=== PATIENT | male | born 1965 | race Caucasian/White ===

== ENCOUNTER 2017-03-12 11:30 | Inpatient (IN) | payer OTHER ==
[2017-03-12] MEDS ORDERED: Clindamycin Phosphate 900 MG in Sodium Chloride 0.9% 100 ML IV ONE (12:33)
[2017-03-12] MEDS: Sodium Chloride 0.9% 10 ML Syringe FLUSH PRN ×2 (12:40→15:52)
--- NOTE | 2017-03-12 12:40 | EDM.PDOC ---
ED HPI GENERAL MEDICAL PROBLEM - General Chief Complaint: Upper Extremity Injury/Pain Stated Complaint: REDNESS AND SWELLING TO LT HAND Time Seen by Provider: 03/12/17 12:20 Source of Information: Reports: Patient History Limitations: Reports: No Limitations - History of Present Illness INITIAL COMMENTS - FREE TEXT/NARRATIVE: Patient is a 51-year-old male who presents to the ED complaining of infection to the left hand and fourth finger. Patient states approximately one week ago developed a blisterlike infection to the dorsal aspect of the proximal phalanx of the left fourth finger. He popped it with some drainage with a needle that was saturated with alcohol. Over the course of the week the redness and swelling has spread involving his hand at this point. He has increased pain with palpation and also with trying to grasp things. States he had episode of feeling feverish 2 days ago that since resolved. No redness streaking up his arm. Swelling is localized to the hand. No history of MRSA. Started taking penicillin that was left over from previous infection yesterday with no improvements to current condition. He has no past medical history and currently taking no medications other than the penicillin. Treatments POST EXCHANGE MANAGER: Reports: Other (see below) Other Treatments POST EXCHANGE MANAGER: Ibuprofen at 1030 Left Hand Pain Score (Numeric/FACES): 8 - Related Data Allergies Allergy/AdvReac Type Severity Reaction Status Date / Time Dairy Products Allergy Itching Verified 03/12/17 11:46 Home Meds: Home Meds Sulfamethoxazole/Trimethoprim [Bactrim Ds Tablet] 1 each PO BID #20 tablet 03/12 [Rx] Past Medical History Gastrointestinal History: Reports: Other (See Below) Other Gastrointestinal History: ulcerative colitis Dermatologic History: Reports: Other (See Below) Other Dermatologic History: staph infections Social & Family History - Tobacco Use Smoking Status *Q: Former Smoker Used Tobacco, but Quit: No - Recreational Drug Use Recreational Drug Use: No Review of Systems - Review of Systems Review Of Systems: ROS reveals no pertinent complaints other than HPI. ED EXAM, GENERAL - Physical Exam Exam: See Below Exam Limited By: No Limitations General Appearance: Alert, WD/WN, No Apparent Distress Ears: Hearing Grossly Normal Nose: Normal Inspection Throat/Mouth: Normal Voice, No Airway Compromise Neck: Normal Inspection, Supple Respiratory/Chest: No Respiratory Distress, Lungs Clear, Normal Breath Sounds, No Accessory Muscle Use, Chest Non-Tender Cardiovascular: Normal Peripheral Pulses, Regular Rate, Rhythm Peripheral Pulses: 2+: Radial (L) Extremities: Other (Abscess to the dorsal aspect of the proximal phalanx left fourth finger and involving the dorsum of the hand. Drainage present. Appears to be clear/stroke other. Increased redness, swelling, pain with palpation. Decreased range of motion noted. This is secondary to swelling. No sensory motor deficits distally. With examination of the left fourth finger patient has no pain with pressing against resistance while flexing and extending. No redness streaking up his arm.) Neurological: Alert, Oriented, Normal Cognition, No Motor/Sensory Deficits Psychiatric: Normal Affect, Normal Mood Skin Exam: Warm, Dry Course - Vital Signs Last Recorded V/S: Last Vital Signs Temp 99.9 F 03/12/17 20:26 Pulse 98 03/12/17 18:25 Resp 17 03/12/17 20:26 BP 153/98 H 03/12/17 20:26 Pulse Ox 97 03/12/17 20:26 - Orders/Labs/Meds Orders: Active Orders 24 hr Category Date Time Status Peripheral IV Care [RC] . DIRECTED Care 03/12/17 12:35 Active CULTURE ANAEROBIC + SMEAR [] Stat Lab 03/12/17 11:40 Results CULTURE ANAEROBIC + SMEAR [] Stat Lab 03/12/17 19:03 Received CULTURE ANAEROBIC + SMEAR [] Stat Lab 03/12/17 19:04 Received Medication Orders Aspirin (Ecotrin) 325 mg PO DAILY EVIE Bisacodyl (Dulcolax) 5 mg PO DAILY PRN PRN Reason: Constipation Diphenhydramine HCl (Benadryl) 25 mg IVPUSH Q4H PRN PRN Reason: Itching Docusate Sodium (Colace) 100 mg PO BID PRN PRN Reason: Constipation Famotidine (Pepcid) 20 mg PO Q12H EVIE Cefazolin Sodium/Dextrose 2 gm (/ Premix) 50 mls @ 100 mls/hr IV Q8H EVIE Vancomycin HCl 1 gm/Vancomycin HCl 500 mg/ Sodium Chloride 500 mls @ 333 mls/ hr IV Q8H EVIE Magnesium Hydroxide (Milk Of Magnesia) 30 ml PO BID PRN PRN Reason: Constipation Morphine Sulfate (Morphine) 2 mg IVPUSH Q2H PRN PRN Reason: Pain (moderate 4-6) Naloxone HCl (Narcan) 0.1 mg IVPUSH Q5M PRN PRN Reason: oversedation Stop: 03/13/17 19:15 Ondansetron HCl (Zofran) 4 mg IVPUSH Q6H PRN PRN Reason: Nausea/Vomiting Oxycodone/Acetaminophen (Percocet 325-5 Mg) 1 - 2 tab PO Q6H PRN PRN Reason: Pain Last Admin: 03/12/17 21:29 Dose: 2 tab Senna (Senna) 8.6 mg PO BID PRN PRN Reason: Constipation Sodium Chloride (Saline Flush) 10 ml FLUSH ASDIRECTED PRN PRN Reason: Keep Vein Open Vancomycin HCl (Pharmacy To Dose - Vancomycin) 1 dose .XX ASDIRECTED EVIE Labs: Laboratory Tests 03/12/17 03/12/17 Range/Units 12:44 12:44 WBC 17.61 H (4.23-9.07) K/mm3 RBC 4.47 L (4.63-6.08) M/mm3 Hgb 13.9 (13.7-17.5) gm/L Hct 40.3 (40.1-51.0) % MCV 90.2 (79.0-92.2) fl MCH 31.1 (25.7-32.2) pg MCHC 34.5 (32.2-35.5) g/dl RDW Std Deviation 42.7 (35.1-43.9) fL Plt Count 230 (163-337) K/mm3 MPV 9.1 L (9.4-12.3) fl Neut % (Auto) 79.1 H (34.0-67.9) % Lymph % (Auto) 11.0 L (21.8-53.1) % [place] % (Auto) 9.1 (5.3-12.2) % Eos % (Auto) 0.5 L (0.8-7.0) Baso % (Auto) 0.1 (0.1-1.2) % Neut # (Auto) 13.93 H (1.78-5.38) K/mm3 Lymph # (Auto) 1.94 (1.32-3.57) K/mm3 [place] # (Auto) 1.61 H (0.30-0.82) K/mm3 Eos # (Auto) 0.08 (0.04-0.54) K/mm3 Baso # (Auto) 0.02 (0.01-0.08) K/mm3 Manual Slide Review Not Reportable Sodium 137 (136-145) mEq/L Potassium 3.8 (3.5-5.1) mEq/L Chloride 102 (98-107) mEq/L Carbon Dioxide 26 (21-32) mEq/L Anion Gap 12.8 (5-15) BUN 12 (7-18) mg/dL Creatinine 1.2 (0.7-1.3) mg/dL Est Cr Clr Drug Dosing 76.69 mL/min Estimated GFR (MDRD) > 60 (>60) mL/min BUN/Creatinine Ratio 10.0 L (14-18) Glucose 102 (74-106) mg/dL Calcium 9.2 (8.5-10.1) mg/dL Total Bilirubin 1.4 H (0.2-1.0) mg/dL AST 20 (15-37) U/L ALT 27 (16-63) U/L Alkaline Phosphatase 86 (46-116) U/L C-Reactive Protein 20.2 H* (<1.0) mg/dL Total Protein 7.8 (6.4-8.2) g/dl Albumin 3.6 (3.4-5.0) g/dl Globulin 4.2 gm/dL Albumin/Globulin Ratio 0.9 L (1-2) Meds: Medications Generic Name Dose Route Start Last Admin Trade Name Freq PRN Reason Stop Dose Admin Aspirin 325 mg 03/13/17 09:00 Ecotrin PO DAILY EVIE Bisacodyl 5 mg 03/12/17 19:11 Dulcolax PO DAILY PRN Constipation Diphenhydramine HCl 25 mg 03/12/17 19:11 Benadryl IVPUSH Q4H PRN Itching Docusate Sodium 100 mg 03/12/17 19:11 Colace PO BID PRN Constipation Famotidine 20 mg 03/12/17 19:15 Pepcid PO Q12H EVIE Cefazolin Sodium/Dextrose 2 gm 50 mls @ 100 mls/hr 03/12/17 22:00 / Premix IV Q8H EVIE Vancomycin HCl 1 gm/ 500 mls @ 333 mls/hr 03/13/17 05:00 Vancomycin HCl 500 mg/ Sodium IV Chloride Q8H EVIE Magnesium Hydroxide 30 ml 03/12/17 19:11 Milk Of Magnesia PO BID PRN Constipation Morphine Sulfate 2 mg 03/12/17 19:11 Morphine IVPUSH Q2H PRN Pain (moderate 4-6) Naloxone HCl 0.1 mg 03/12/17 19:11 Narcan IVPUSH 03/13/17 19:15 Q5M PRN oversedation Ondansetron HCl 4 mg 03/12/17 19:11 Zofran IVPUSH Q6H PRN Nausea/Vomiting Oxycodone/Acetaminophen 1 - 2 tab 03/12/17 19:11 03/12/17 21:29 Percocet 325-5 Mg PO 2 tab Q6H PRN Administration Pain Senna 8.6 mg 03/12/17 19:11 Senna PO BID PRN Constipation Sodium Chloride 10 ml 03/12/17 19:11 Saline Flush FLUSH ASDIRECTED PRN Keep Vein Open Vancomycin HCl 1 dose 03/12/17 19:15 Pharmacy To Dose - Vancomycin .XX ASDIRECTED EVIE Discontinued Medications Generic Name Dose Route Start Last Admin Trade Name Freq PRN Reason Stop Dose Admin Bupivacaine HCl Confirm 03/12/17 18:07 Marcaine 0.25% Administered 03/12/17 18:08 Dose 30 ml .ROUTE .STK-MED ONE Fentanyl Confirm 03/12/17 18:37 Sublimaze Administered 03/12/17 18:38 Dose 250 mcg .ROUTE .STK-MED ONE Gadobenate Dimeglumine 20 ml 03/12/17 14:52 03/12/17 15:51 Multihance IVPUSH 03/12/17 14:53 20 ml ONETIME ONE Administration Clindamycin Phosphate 900 mg/ 106 mls @ 100 mls/hr 03/12/17 12:33 03/12/17 12 :52 Sodium Chloride IV 03/12/17 13:36 100 mls/hr ONETIME ONE Administration Vancomycin HCl 1 gm/ Sodium 250 mls @ 250 mls/hr 03/12/17 17:41 03/12/17 17: 51 Chloride IV 03/12/17 18:40 Not Given ONETIME ONE Sodium Chloride 1,000 mls @ 999 mls/hr 03/12/17 18:12 03/12/17 18:23 Normal Saline IV 03/12/17 19:12 999 mls/hr ONETIME ONE Administration Lidocaine HCl Confirm 03/12/17 18:37 Xylocaine-Mpf 1% Administered 03/12/17 18:38 Dose 4 mls @ as directed .ROUTE .STK-MED ONE Cefazolin Sodium/Dextrose 2 gm 50 mls @ 100 mls/hr 03/12/17 19:00 / Premix IV Q8H EVIE Lactated Ringer's Confirm 03/12/17 19:32 Ringers, Lactated Administered 03/12/17 19:33 Dose 1,000 mls @ as directed .ROUTE .STK-MED ONE Vancomycin HCl 1 gm/ 500 mls @ 333 mls/hr 03/12/17 21:00 Vancomycin HCl 500 mg/ Sodium IV Chloride Q8H EVIE Ketorolac Tromethamine 30 mg 03/12/17 17:41 03/12/17 17:49 Toradol IVPUSH 03/12/17 17:42 30 mg ONETIME ONE Administration Midazolam HCl Confirm 03/12/17 18:37 Versed 1 Mg/Ml Administered 03/12/17 18:38 Dose 2 mg .ROUTE .STK-MED ONE Ondansetron HCl Confirm 03/12/17 18:36 Zofran Administered 03/12/17 18:37 Dose 4 mg .ROUTE .STK-MED ONE Propofol Confirm 03/12/17 18:36 Diprivan 20 Ml Administered 03/12/17 18:37 Dose 200 mg .ROUTE .STK-MED ONE Sodium Chloride 10 ml 03/12/17 12:33 03/12/17 15:52 Saline Flush FLUSH 10 ml ASDIRECTED PRN Administration Keep Vein Open Sodium Chloride 10 ml 03/12/17 14:52 03/12/17 15:53 Saline Flush FLUSH 10 ml ONETIME PRN Administration Keep Vein Open Trimethoprim/Sulfamethoxazole 2 tab 03/12/17 16:48 03/12/17 17:51 Septra Ds PO 03/12/17 16:49 Not Given ONETIME ONE Vancomycin HCl Confirm 03/12/17 19:03 03/12/17 19:16 Vancomycin Administered 03/12/17 19:04 1 gm Dose Administration 1 gm .ROUTE .STK-MED ONE - Re-Assessments/Exams Free Text/Narrative Re-Assessment/Exam: X-ray of the left hand did not reveal any acute bony abnormalities or foreign objects present. Soft tissue swelling present. No findings suspicious for osteomyelitis. 03/12/17 14:21 Labs reviewed: White blood cell count 17.61, neutrophil percentage 79.1, neutrophil #13.93, and chemistry panel is essentially normal. CRP is 20.2. IV antibiotic has been completed. [address] Ly. Suggested Stat Hand MRI with and without contrast to evaluate for deep abscess. If no abscess call back and discuss further treatment. If abscess present requires surgery and hospitalization. 03/12/17 16:42 MRI of the left hand impression: Diffuse soft tissue edema within the dorsum of the hand as well extending into the fourth digit. Diffuse enhancement is seen compatible with inflammatory change. Findings are compatible with severe cellulitis. Several nonenhancing areas are seen posteriorly at the level of the distal metacarpals and extending into the base of the fourth finger which are felt compatible with small multiloculated abscess collections. Largest abscess measures about 1.9 cm[address] Ly suggests starting the patient on Bactrim DS. This has been ordered. Requests patient be NPO after midnight. Go to his clinic at 0800 hrs tomorrow to be reevaluated. Surgery debridement at noon. 03/12/17 17:07 Reevaluation prior to discharge. Patient complaining of chills. Temp recheck 99.9 F. Reexamination of the left hand and forearm. Noted faint redness streaking up the medial aspect of the left forearm. Called Dr. Ly back. He will see the patient in the E.D. to determine if surgery this evening is required. Patient last ate fruit and two slim jims prior to coming to the E.D. 03/12/17 17:41 Per nursing Temp Recheck was 101.6. Ordered toradol 30mg IVP. In addition will order vancomycin 1 gram IV. 03/12/17 17:45 Dr. Ly has arrived to the E.D. and evaluated the patient. Patient will be going to surgery. OR staff called in. Departure - Departure Time of Disposition: 16:52 Disposition: DC/Tfer to [facility] Condition: Fair Clinical Impression: Cellulitis and abscess of hand Fever Qualifiers: Fever type: unspecified Qualified Code(s): R50.9 - Fever, unspecified - Discharge Information - My Orders Last 24 Hours: My Active Orders 03/12/17 11:40 CULTURE ANAEROBIC + SMEAR [RM] Stat 03/12/17 12:35 Peripheral IV Care [RC] . DIRECTED - Assessment/Plan Last 24 Hours: My Active Orders 03/12/17 11:40 CULTURE ANAEROBIC + SMEAR [RM] Stat 03/12/17 12:35 Peripheral IV Care [RC] . DIRECTED
[2017-03-12] MEDS ORDERED: Gadobenate Dimeglumine 529 MG/ML 20 ML SDV IVPUSH ONE (14:52)
[2017-03-12] MEDS ORDERED: Sodium Chloride 0.9% 10 ML Syringe FLUSH PRN ×2 (14:52→19:11)
--- NOTE | 2017-03-12 16:01 | CR ---
Left hand: Two views of the left hand were obtained. Diffuse soft tissue swelling is identified. Mild joint space narrowing is scattered within the DIP and PIP joints. No focal erosive change is seen. No fracture or other bony abnormality is seen. No opaque soft tissue foreign body is seen. Impression: 1. Diffuse soft tissue swelling. No acute bony abnormality is identified. Diagnostic code #2
--- NOTE | 2017-03-12 16:32 | MR ---
MRI left hand (with and without contrast) Technique: Multiple coronal, axial and sagittal images were obtained. Post gadolinium T1 fat suppressed axial, coronal and sagittal images were also obtained. Findings: Diffuse soft tissue edema is identified. This is noted within the dorsum of the hand which was incompletely included as well as mostly of the fourth finger. After gadolinium enhancement there is diffuse enhancement of this inflammatory change. There are some nonenhancing areas at the level of the distal metacarpals along the posterior aspect suspicious for small multiloculated areas of abscess formation. These small abscesses are not connected with definite certainty. Largest abscess measures about 1.9 cm. Findings are best seen on the axial images. Impression: 1. Diffuse soft tissue edema within the dorsum of the hand as well as extending into the fourth digit. Diffuse enhancement is seen compatible with inflammatory change. Findings are compatible with severe cellulitis. Several nonenhancing areas are seen posteriorly at the level of the distal metacarpals and extending into the base of the fourth finger which are felt compatible with small multiloculated abscess collections. Diagnostic code #5
[2017-03-12] MEDS ORDERED: Sulfamethoxazole/Trimethoprim 800-160 MG Tab PO ONE (16:48)
[2017-03-12] MEDS ORDERED: Ketorolac 30 MG/ML SDV IVPUSH ONE (17:41)
[2017-03-12] MEDS ORDERED: Bupivacaine 0.25% 30 ML SDV ONE (18:07)
[2017-03-12] MEDS ORDERED: Sodium Chloride 0.9% 1,000 ML IV ONE (18:12)
--- NOTE | 2017-03-12 18:25 | PCM.PREANE ---
Preanesthetic Assessment - Anesthesia/Transfusion/Family Hx Anesthesia History: Prior Anesthesia Without Reaction Family History of Anesthesia Reaction: No Transfusion History: No Prior Transfusion(s) - Review of Systems General: Fever, Fatigue, Malaise, Chills, Night Sweats Pulmonary: No Symptoms Cardiovascular: No Symptoms Gastrointestinal: No Symptoms Neurological: No Symptoms Other: Reports: None - Physical Assessment NPO Status Date: 03/12/17 NPO Status Time: 11:10 Pulse: 98 O2 Sat by Pulse Oximetry: 95 Respiratory Rate: 17 Blood Pressure: 135/89 Temperature: 37.2 C Vital Signs: Last Vital Signs Temp 37.2 C 03/12/17 11:46 Pulse 98 03/12/17 11:46 Resp 17 03/12/17 11:46 BP 135/89 03/12/17 11:46 Pulse Ox 95 03/12/17 11:46 Height: 1.8 m Weight: 127.006 kg ASA Class: 2 Mental Status: Alert & Oriented x3 Airway Class: Mallampati = 1 Dentition: Reports: Normal Dentition, [place](s) Thyro-Mental Finger Breadths: 3 Mouth Opening Finger Breadths: 3 ROM/Head Extension: Full Lungs: Clear to Auscultation, Normal Respiratory Effort Cardiovascular: Regular Rate, Regular Rhythm, No Murmurs - Lab Values: Laboratory Last Values WBC 17.61 K/mm3 (4.23-9.07) H 03/12/17 12:44 RBC 4.47 M/mm3 (4.63-6.08) L 03/12/17 12:44 Hgb 13.9 gm/L (13.7-17.5) 03/12/17 12:44 Hct 40.3 % (40.1-51.0) 03/12/17 12:44 MCV 90.2 fl (79.0-92.2) 03/12/17 12:44 MCH 31.1 pg (25.7-32.2) 03/12/17 12:44 MCHC 34.5 g/dl (32.2-35.5) 03/12/17 12:44 RDW Std Deviation 42.7 fL (35.1-43.9) 03/12/17 12:44 Plt Count 230 K/mm3 (163-337) 03/12/17 12:44 MPV 9.1 fl (9.4-12.3) L 03/12/17 12:44 Neut % (Auto) 79.1 % (34.0-67.9) H 03/12/17 12:44 Lymph % (Auto) 11.0 % (21.8-53.1) L 03/12/17 12:44 [place] % (Auto) 9.1 % (5.3-12.2) 03/12/17 12:44 Eos % (Auto) 0.5 (0.8-7.0) L 03/12/17 12:44 Baso % (Auto) 0.1 % (0.1-1.2) 03/12/17 12:44 Neut # (Auto) 13.93 K/mm3 (1.78-5.38) H 03/12/17 12:44 Lymph # (Auto) 1.94 K/mm3 (1.32-3.57) 03/12/17 12:44 [place] # (Auto) 1.61 K/mm3 (0.30-0.82) H 03/12/17 12:44 Eos # (Auto) 0.08 K/mm3 (0.04-0.54) 03/12/17 12:44 Baso # (Auto) 0.02 K/mm3 (0.01-0.08) 03/12/17 12:44 Manual Slide Review Not Reportable 03/12/17 12:44 Sodium 137 mEq/L (136-145) 03/12/17 12:44 Potassium 3.8 mEq/L (3.5-5.1) 03/12/17 12:44 Chloride 102 mEq/L (98-107) 03/12/17 12:44 Carbon Dioxide 26 mEq/L (21-32) 03/12/17 12:44 Anion Gap 12.8 (5-15) 03/12/17 12:44 BUN 12 mg/dL (7-18) 03/12/17 12:44 Creatinine 1.2 mg/dL (0.7-1.3) 03/12/17 12:44 Est Cr Clr Drug Dosing 76.69 mL/min 03/12/17 12:44 Estimated GFR (MDRD) > 60 mL/min (>60) 03/12/17 12:44 BUN/Creatinine Ratio 10.0 (14-18) L 03/12/17 12:44 Glucose 102 mg/dL (74-106) 03/12/17 12:44 Calcium 9.2 mg/dL (8.5-10.1) 03/12/17 12:44 Total Bilirubin 1.4 mg/dL (0.2-1.0) H 03/12/17 12:44 AST 20 U/L (15-37) 03/12/17 12:44 ALT 27 U/L (16-63) 03/12/17 12:44 Alkaline Phosphatase 86 U/L (46-116) 03/12/17 12:44 C-Reactive Protein 20.2 mg/dL (<1.0) H* 03/12/17 12:44 Total Protein 7.8 g/dl (6.4-8.2) 03/12/17 12:44 Albumin 3.6 g/dl (3.4-5.0) 03/12/17 12:44 Globulin 4.2 gm/dL 03/12/17 12:44 Albumin/Globulin Ratio 0.9 (1-2) L 03/12/17 12:44 - Allergies Allergies/Adverse Reactions: Allergies Allergy/AdvReac Type Severity Reaction Status Date / Time Dairy Products Allergy Itching Verified 03/12/17 11:46 - Anesthesia Plan Pre-Op Medication Ordered: None - Acknowledgements Anesthesia Type Planned: General Anesthesia Pt an Appropriate Candidate for the Planned Anesthesia: Yes Alternatives and Risks of Anesthesia Discussed w Pt/Guardian: Yes Pt/Guardian Understands and Agrees with Anesthesia Plan: Yes PreAnesthesia Questionnaire Gastrointestinal History: Reports: Other (See Below) Other Gastrointestinal History: ulcerative colitis Dermatologic History: Reports: Other (See Below) Other Dermatologic History: staph infections - SUBSTANCE USE Smoking Status *Q: Former Smoker Tobacco Use Within Last Twelve Months: No Second Hand Smoke Exposure: No Days Per Week of Alcohol Use: 0 Number of Drinks Per Day: 0 Total Drinks Per Week: 0 Recreational Drug Use History: No - HOME MEDS Home Medications: Home Meds Sulfamethoxazole/Trimethoprim [Bactrim Ds Tablet] 1 each PO BID #20 tablet 03/12 [Rx] - CURRENT (IN HOUSE) MEDS Current Meds: Current Medications Vancomycin HCl 1 gm/ Sodium (Chloride) 250 mls @ 250 mls/hr IV ONETIME ONE Stop: 03/12/17 18:40 Last Admin: 03/12/17 17:51 Dose: Not Given Sodium Chloride (Normal Saline) 1,000 mls @ 999 mls/hr IV ONETIME ONE Stop: 03/12/17 19:12 Sodium Chloride (Saline Flush) 10 ml FLUSH ASDIRECTED PRN PRN Reason: Keep Vein Open Last Admin: 03/12/17 15:52 Dose: 10 ml Sodium Chloride (Saline Flush) 10 ml FLUSH ONETIME PRN PRN Reason: Keep Vein Open Last Admin: 03/12/17 15:53 Dose: 10 ml Discontinued Medications Bupivacaine HCl (Marcaine 0.25%) Confirm Administered Dose 30 ml .ROUTE .STK- MED ONE Stop: 03/12/17 18:08 Gadobenate Dimeglumine (Multihance) 20 ml IVPUSH ONETIME ONE Stop: 03/12/17 14:53 Last Admin: 03/12/17 15:51 Dose: 20 ml Clindamycin Phosphate 900 mg/ (Sodium Chloride) 106 mls @ 100 mls/hr IV ONETIME ONE Stop: 03/12/17 13:36 Last Admin: 03/12/17 12:52 Dose: 100 mls/hr Ketorolac Tromethamine (Toradol) 30 mg IVPUSH ONETIME ONE Stop: 03/12/17 17:42 Last Admin: 03/12/17 17:49 Dose: 30 mg Trimethoprim/Sulfamethoxazole (Septra Ds) 2 tab PO ONETIME ONE Stop: 03/12/17 16:49 Last Admin: 03/12/17 17:51 Dose: Not Given
[2017-03-12] MEDS ORDERED: Propofol 200 MG/20 ML SDV ONE (18:36)
[2017-03-12] MEDS ORDERED: Ondansetron 4 MG/2 ML SDV ONE (18:36)
[2017-03-12] MEDS ORDERED: Lidocaine 1% 4 ML ONE (18:37)
[2017-03-12] MEDS ORDERED: fentaNYL 250 MCG/5 ML SDV ONE (18:37)
[2017-03-12] MEDS ORDERED: Midazolam 1 MG/ML 2 ML SDV ONE (18:37)
[2017-03-12] MEDS ORDERED: ceFAZolin 2 GM in Premix Bag 1 BAG IV SCH (19:00)
[2017-03-12] MEDS ORDERED: Vancomycin 1 GM SDV ONE (19:03)
[2017-03-12] MEDS ORDERED: diphenhydrAMINE 50 MG/ML SDV IVPUSH PRN (19:11)
[2017-03-12] MEDS ORDERED: Magnesium Hydroxide 400 MG/5 ML Susp 30 ML Cup PO PRN (19:11)
[2017-03-12] MEDS ORDERED: Ondansetron 4 MG/2 ML SDV IVPUSH PRN (19:11)
[2017-03-12] MEDS ORDERED: Sennosides 8.6 MG Tab PO PRN (19:11)
[2017-03-12] MEDS ORDERED: Naloxone 0.4 MG/ML SDV IVPUSH PRN (19:11)
[2017-03-12] MEDS ORDERED: Morphine 2 MG/ML Syringe IVPUSH PRN (19:11)
[2017-03-12] MEDS ORDERED: Bisacodyl 5 MG Tab PO PRN (19:11)
[2017-03-12] MEDS ORDERED: Docusate Sodium 100 MG Cap PO PRN (19:11)
[2017-03-12] MEDS ORDERED: Lactated Ringers 1,000 ML ONE (19:32)
[2017-03-12] MEDS ORDERED: Vancomycin 1500 MG in Sodium Chloride 0.9% 500 ML IV SCH ×3 (21:00)
[2017-03-12] MEDS: Acetaminophen/oxyCODONE 325-5 MG Tab PO PRN (21:29)
[2017-03-12] MEDS: ceFAZolin 2 GM in Premix Bag 1 BAG IV SCH (22:33)
[2017-03-12] MEDS: Famotidine 20 MG Tab PO SCH (22:43)
[2017-03-13] MEDS: Acetaminophen/oxyCODONE 325-5 MG Tab PO PRN ×2 (04:17→13:44)
[2017-03-13] MEDS ORDERED: Vancomycin 1500 MG in Sodium Chloride 0.9% 500 ML IV SCH ×3 (05:00)
[2017-03-13] MEDS: Famotidine 20 MG Tab PO SCH ×2 (06:34→18:55)
[2017-03-13] MEDS: ceFAZolin 2 GM in Premix Bag 1 BAG IV SCH ×3 (06:35→22:45)
--- NOTE | 2017-03-13 08:11 | PCM48HPAN ---
Post Anesthesia Note - EVALUATION WITHIN 48HRS OF ANESTHETIC Vital Signs in Normal Range: Yes Patient Participated in Evaluation: Yes Respiratory Function Stable: Yes Airway Patent: Yes Cardiovascular Function Stable: Yes Hydration Status Stable: Yes Pain Control Satisfactory: Yes Nausea and Vomiting Control Satisfactory: Yes Mental Status Recovered: Yes
[2017-03-13] MEDS: Aspirin 325 MG Tab.EC PO SCH (09:23)
[2017-03-13] MEDS: Vancomycin 1500 MG in Sodium Chloride 0.9% 500 ML IV SCH ×3 (14:59)
--- NOTE | 2017-03-13 17:15 | PCM.SURGPN ---
- General Info Date of Service: 03/13/17 POD#: 1 Functional Status: Reports: Pain Controlled, Tolerating Diet, Ambulating, Urinating, Other (The pt states he has been ambulating today.) - Patient Data Vitals - Most Recent: Last Vital Signs Temp 98.4 F 03/13/17 15:24 Pulse 94 03/13/17 15:24 Resp 20 03/13/17 15:24 BP 131/80 03/13/17 15:24 Pulse Ox 96 03/13/17 15:24 Weight - Most Recent: 256 lb 9.6 oz I&O - Last 24 Hours: Intake & Output 03/13/17 03/13/17 03/13/17 06:59 14:59 22:59 Intake Total 1400 120 540 Output Total 600 Balance 1400 120 -60 Lab Results Last 24 Hrs: Laboratory Results - last 24 hr 03/13/17 03/13/17 Range/Units 05:10 12:46 WBC 13.10 H (4.23-9.07) K/mm3 RBC 3.94 L (4.63-6.08) M/mm3 Hgb 12.1 L (13.7-17.5) gm/L Hct 36.5 L (40.1-51.0) % MCV 92.6 H (79.0-92.2) fl MCH 30.7 (25.7-32.2) pg MCHC 33.2 (32.2-35.5) g/dl RDW Std Deviation 43.8 (35.1-43.9) fL Plt Count 221 (163-337) K/mm3 MPV 9.3 L (9.4-12.3) fl Neut % (Auto) 72.2 H (34.0-67.9) % Lymph % (Auto) 14.4 L (21.8-53.1) % [place] % (Auto) 10.7 (5.3-12.2) % Eos % (Auto) 2.1 (0.8-7.0) Baso % (Auto) 0.2 (0.1-1.2) % Neut # (Auto) 9.46 H (1.78-5.38) K/mm3 Lymph # (Auto) 1.88 (1.32-3.57) K/mm3 [place] # (Auto) 1.40 H (0.30-0.82) K/mm3 Eos # (Auto) 0.28 (0.04-0.54) K/mm3 Baso # (Auto) 0.03 (0.01-0.08) K/mm3 Vancomycin Trough 7.0 L (10.0-20.0) Med Orders - Current: Current Medications Aspirin (Ecotrin) [address] [facility] Last Admin: 03/13/17 09:23 Dose: 325 mg Bisacodyl (Dulcolax) 5 mg PO DAILY PRN PRN Reason: Constipation Diphenhydramine HCl (Benadryl) 25 mg IVPUSH Q4H PRN PRN Reason: Itching Docusate Sodium (Colace) 100 mg PO BID PRN PRN Reason: Constipation Famotidine (Pepcid) [address] [facility] Last Admin: 03/13/17 06:34 Dose: 20 mg Cefazolin Sodium/Dextrose 2 gm (/ Premix) 50 mls @ 100 mls/hr IV Q8H [facility] Last Admin: 03/13/17 13:48 Dose: 100 mls/hr Vancomycin HCl 1 gm/Vancomycin HCl 500 mg/ Sodium Chloride 500 mls @ 333 mls/ hr IV Q12H [facility] Last Admin: 03/13/17 14:59 Dose: 333 mls/hr Magnesium Hydroxide (Milk Of Magnesia) 30 ml PO BID PRN PRN Reason: Constipation Morphine Sulfate (Morphine) 2 mg IVPUSH Q2H PRN PRN Reason: Pain (moderate 4-6) Naloxone HCl (Narcan) 0.1 mg IVPUSH Q5M PRN PRN Reason: oversedation Stop: 03/13/17 19:15 Ondansetron HCl (Zofran) 4 mg IVPUSH Q6H PRN PRN Reason: Nausea/Vomiting Oxycodone/Acetaminophen (Percocet 325-5 Mg) 1 - 2 tab PO Q6H PRN PRN Reason: Pain Last Admin: 03/13/17 13:44 Dose: 2 tab Senna (Senna) 8.6 mg PO BID PRN PRN Reason: Constipation Sodium Chloride (Saline Flush) 10 ml FLUSH ASDIRECTED PRN PRN Reason: Keep Vein Open Vancomycin HCl (Pharmacy To Dose - Vancomycin) [address] [facility] Discontinued Medications Bupivacaine HCl (Marcaine 0.25%) Confirm Administered Dose 30 ml .ROUTE .STK- MED ONE Stop: 03/12/17 18:08 Fentanyl (Sublimaze) Confirm Administered Dose 250 mcg .ROUTE .STK-MED ONE Stop: 03/12/17 18:38 Gadobenate Dimeglumine (Multihance) 20 ml IVPUSH ONETIME ONE Stop: 03/12/17 14:53 Last Admin: 03/12/17 15:51 Dose: 20 ml Clindamycin Phosphate 900 mg/ (Sodium Chloride) 106 mls @ 100 mls/hr IV ONETIME ONE Stop: 03/12/17 13:36 Last Admin: 03/12/17 12:52 Dose: 100 mls/hr Vancomycin HCl 1 gm/ Sodium (Chloride) 250 mls @ 250 mls/hr IV ONETIME ONE Stop: 03/12/17 18:40 Last Admin: 03/12/17 17:51 Dose: Not Given Sodium Chloride (Normal Saline) 1,000 mls @ 999 mls/hr IV ONETIME ONE Stop: 03/12/17 19:12 Last Admin: 03/12/17 18:23 Dose: 999 mls/hr Lidocaine HCl (Xylocaine-Mpf 1%) Confirm Administered Dose 4 mls @ as directed .ROUTE .STK-MED ONE Stop: 03/12/17 18:38 Cefazolin Sodium/Dextrose 2 gm (/ Premix) 50 mls @ 100 mls/hr IV Q8H [facility] Last Admin: 03/12/17 23:16 Dose: Not Given Lactated Ringer's (Ringers, Lactated) Confirm Administered Dose 1,000 mls @ as directed .ROUTE .STK-MED ONE Stop: 03/12/17 19:33 Vancomycin HCl 1 gm/Vancomycin HCl 500 mg/ Sodium Chloride 500 mls @ 333 mls/ hr IV Q8H [facility] Last Admin: 03/12/17 23:16 Dose: Not Given Vancomycin HCl 1 gm/Vancomycin HCl 500 mg/ Sodium Chloride 500 mls @ 333 mls/ hr IV Q8H [facility] Last Admin: 03/13/17 04:35 Dose: 333 mls/hr Ketorolac Tromethamine (Toradol) 30 mg IVPUSH ONETIME ONE Stop: 03/12/17 17:42 Last Admin: 03/12/17 17:49 Dose: 30 mg Midazolam HCl (Versed 1 Mg/Ml) Confirm Administered Dose 2 mg .ROUTE .STK-MED ONE Stop: 03/12/17 18:38 Ondansetron HCl (Zofran) Confirm Administered Dose 4 mg .ROUTE .STK-MED ONE Stop: 03/12/17 18:37 Propofol (Diprivan 20 Ml) Confirm Administered Dose 200 mg .ROUTE .STK-MED ONE Stop: 03/12/17 18:37 Sodium Chloride (Saline Flush) 10 ml FLUSH ASDIRECTED PRN PRN Reason: Keep Vein Open Last Admin: 03/12/17 15:52 Dose: 10 ml Sodium Chloride (Saline Flush) 10 ml FLUSH ONETIME PRN PRN Reason: Keep Vein Open Last Admin: 03/12/17 15:53 Dose: 10 ml Trimethoprim/Sulfamethoxazole (Septra Ds) 2 tab PO ONETIME ONE Stop: 03/12/17 16:49 Last Admin: 03/12/17 17:51 Dose: Not Given Vancomycin HCl (Vancomycin) Confirm Administered Dose 1 gm .ROUTE .STK-MED ONE Stop: 03/12/17 19:04 Last Admin: 03/12/17 19:16 Dose: 1 gm - Exam Wound/Incisions: Dressing Dry and Intact General: Alert, Cooperative, No Acute Distress Lungs: Normal Respiratory Effort Extremities: Other (Mod soft tissue swelling and erythema left ring finger. The pt was able to flex and extend all fingers of left hand. NVS intact for LUE. Erythema extending superiorly to medial forearm and upper arm with min swelling noted.) - Problem List Review Problem List Initiated/Reviewed/Updated: Yes - My Orders Last 24 Hours: Active Orders 24 hr Category Date Time Status Patient Status [ADT] Routine ADT 03/12/17 20:20 Active VANCOMYCIN TROUGH [CHEM] Routine Lab 03/15/17 02:00 Ordered Vancomycin 1 gm Med 03/13/17 14:30 Active Vancomycin 500 mg Sodium Chloride 0.9% [Normal Saline] 500 ml IV Q12H ceFAZolin [Ancef] 2 gm Med 03/12/17 22:00 Active Premix Bag 1 bag IV Q8H Medication Orders Aspirin (Ecotrin) 325 mg PO DAILY [facility] Last Admin: 03/13/17 09:23 Dose: 325 mg Bisacodyl (Dulcolax) 5 mg PO DAILY PRN PRN Reason: Constipation Diphenhydramine HCl (Benadryl) 25 mg IVPUSH Q4H PRN PRN Reason: Itching Docusate Sodium (Colace) 100 mg PO BID PRN PRN Reason: Constipation Famotidine (Pepcid) [address] [facility] Last Admin: 03/13/17 06:34 Dose: 20 mg Admin: 03/12/17 22:43 Dose: 20 mg Cefazolin Sodium/Dextrose 2 gm (/ Premix) 50 mls @ 100 mls/hr IV Q8H [facility] Last Admin: 03/13/17 13:48 Dose: 100 mls/hr Infusion: 03/13/17 07:05 Dose: 100 mls/hr Admin: 03/13/17 06:35 Dose: 100 mls/hr Infusion: 03/12/17 23:03 Dose: 100 mls/hr Admin: 03/12/17 22:33 Dose: 100 mls/hr Vancomycin HCl 1 gm/Vancomycin HCl 500 mg/ Sodium Chloride 500 mls @ 333 mls/ hr IV Q12H [facility] Last Admin: 03/13/17 14:59 Dose: 333 mls/hr Magnesium Hydroxide (Milk Of Magnesia) 30 ml PO BID PRN PRN Reason: Constipation Morphine Sulfate (Morphine) 2 mg IVPUSH Q2H PRN PRN Reason: Pain (moderate 4-6) Naloxone HCl (Narcan) 0.1 mg IVPUSH Q5M PRN PRN Reason: oversedation Stop: 03/13/17 19:15 Ondansetron HCl (Zofran) 4 mg IVPUSH Q6H PRN PRN Reason: Nausea/Vomiting Oxycodone/Acetaminophen (Percocet 325-5 Mg) 1 - 2 tab PO Q6H PRN PRN Reason: Pain Last Admin: 03/13/17 13:44 Dose: 2 tab Admin: 03/13/17 04:17 Dose: 2 tab Admin: 03/12/17 21:29 Dose: 2 tab Senna (Senna) 8.6 mg PO BID PRN PRN Reason: Constipation Sodium Chloride (Saline Flush) 10 ml FLUSH ASDIRECTED PRN PRN Reason: Keep Vein Open Vancomycin HCl (Pharmacy To Dose - Vancomycin) 1 dose .XX ASDIRECTED [facility] - Assessment Assessment (Free Text/Narrative):: POD#1 - I&D of left hand abscess - Plan Plan (Free Text/Narrative):: 1. Continue with IV Ancef and Vanc at this time. Gram stain with gram positive cocci, suspected staph aureus. 2. WBC decreased to 13.1. 3. Will obtain CRP tomorrow am. 4. Suspect discharge to home after C&S available. The pt's case was discussed with Dr. Ly.
[2017-03-14] MEDS: Vancomycin 1500 MG in Sodium Chloride 0.9% 500 ML IV SCH ×6 (01:56→14:44)
[2017-03-14] MEDS: Acetaminophen/oxyCODONE 325-5 MG Tab PO PRN ×2 (03:43→20:12)
[2017-03-14] MEDS: Famotidine 20 MG Tab PO SCH ×2 (06:40→18:29)
[2017-03-14] MEDS: ceFAZolin 2 GM in Premix Bag 1 BAG IV SCH ×2 (06:40→13:43)
[2017-03-14] MEDS: Aspirin 325 MG Tab.EC PO SCH (08:54)
--- NOTE | 2017-03-14 10:06 | PCM.SURGPN ---
- General Info Date of Service: 03/14/17 POD#: 2 Functional Status: Reports: Pain Controlled, Tolerating Diet, Ambulating, Urinating - Review of Systems Musculoskeletal: Reports: Other (The pt was sitting in the chair at time of examination. He reports he "seemed to turn the corner yesterday". He notes less swelling and erythema at LUE.) - Patient Data Vitals - Most Recent: Last Vital Signs Temp 98.2 F 03/14/17 07:46 Pulse 80 03/14/17 07:47 Resp 19 03/14/17 07:46 BP 142/83 H 03/14/17 07:47 Pulse Ox 92 L 03/14/17 07:47 Weight - Most Recent: 254 lb 4.8 oz I&O - Last 24 Hours: Intake & Output 03/13/17 03/14/17 03/14/17 22:59 06:59 14:59 Intake Total 1120 700 Output Total 600 1300 Balance 520 -600 Lab Results Last 24 Hrs: Laboratory Results - last 24 hr 03/13/17 03/14/17 03/14/17 Range/Units 12:46 06:06 06:06 WBC 10.71 H (4.23-9.07) K/mm3 RBC 4.01 L (4.63-6.08) M/mm3 Hgb 12.4 L (13.7-17.5) gm/L Hct 36.6 L (40.1-51.0) % MCV 91.3 (79.0-92.2) fl MCH 30.9 (25.7-32.2) pg MCHC 33.9 (32.2-35.5) g/dl RDW Std Deviation 41.8 (35.1-43.9) fL Plt Count 230 (163-337) K/mm3 MPV 9.1 L (9.4-12.3) fl Neut % (Auto) 67.9 (34.0-67.9) % Lymph % (Auto) 18.5 L (21.8-53.1) % [place] % (Auto) 9.6 (5.3-12.2) % Eos % (Auto) 3.2 (0.8-7.0) Baso % (Auto) 0.3 (0.1-1.2) % Neut # (Auto) 7.28 H (1.78-5.38) K/mm3 Lymph # (Auto) 1.98 (1.32-3.57) K/mm3 [place] # (Auto) 1.03 H (0.30-0.82) K/mm3 Eos # (Auto) 0.34 (0.04-0.54) K/mm3 Baso # (Auto) 0.03 (0.01-0.08) K/mm3 C-Reactive Protein 16.6 H* (<1.0) mg/dL Vancomycin Trough 7.0 L (10.0-20.0) Med Orders - Current: Current Medications Aspirin (Ecotrin) 325 mg PO DAILY [facility] Last Admin: 03/14/17 08:54 Dose: 325 mg Bisacodyl (Dulcolax) 5 mg PO DAILY PRN PRN Reason: Constipation Diphenhydramine HCl (Benadryl) 25 mg IVPUSH Q4H PRN PRN Reason: Itching Docusate Sodium (Colace) 100 mg PO BID PRN PRN Reason: Constipation Famotidine (Pepcid) 20 mg PO Q12H [facility] Last Admin: 03/14/17 06:40 Dose: 20 mg Cefazolin Sodium/Dextrose 2 gm (/ Premix) 50 mls @ 100 mls/hr IV Q8H [facility] Last Admin: 03/14/17 06:40 Dose: 100 mls/hr Vancomycin HCl 1 gm/Vancomycin HCl 500 mg/ Sodium Chloride 500 mls @ 333 mls/ hr IV Q12H [facility] Last Admin: 03/14/17 01:56 Dose: 333 mls/hr Magnesium Hydroxide (Milk Of Magnesia) 30 ml PO BID PRN PRN Reason: Constipation Morphine Sulfate (Morphine) 2 mg IVPUSH Q2H PRN PRN Reason: Pain (moderate 4-6) Last Admin: 03/13/17 21:50 Dose: 2 mg Ondansetron HCl (Zofran) 4 mg IVPUSH Q6H PRN PRN Reason: Nausea/Vomiting Oxycodone/Acetaminophen (Percocet 325-5 Mg) 1 - 2 tab PO Q6H PRN PRN Reason: Pain Last Admin: 03/14/17 03:43 Dose: 2 tab Senna (Senna) 8.6 mg PO BID PRN PRN Reason: Constipation Sodium Chloride (Saline Flush) 10 ml FLUSH ASDIRECTED PRN PRN Reason: Keep Vein Open Vancomycin HCl (Pharmacy To Dose - Vancomycin) 1 dose .XX ASDIRECTED [facility] Discontinued Medications Bupivacaine HCl (Marcaine 0.25%) Confirm Administered Dose 30 ml .ROUTE .STK- MED ONE Stop: 03/12/17 18:08 Fentanyl (Sublimaze) Confirm Administered Dose 250 mcg .ROUTE .STK-MED ONE Stop: 03/12/17 18:38 Gadobenate Dimeglumine (Multihance) 20 ml IVPUSH ONETIME ONE Stop: 03/12/17 14:53 Last Admin: 03/12/17 15:51 Dose: 20 ml Clindamycin Phosphate 900 mg/ (Sodium Chloride) 106 mls @ 100 mls/hr IV ONETIME ONE Stop: 03/12/17 13:36 Last Admin: 03/12/17 12:52 Dose: 100 mls/hr Vancomycin HCl 1 gm/ Sodium (Chloride) 250 mls @ 250 mls/hr IV ONETIME ONE Stop: 03/12/17 18:40 Last Admin: 03/12/17 17:51 Dose: Not Given Sodium Chloride (Normal Saline) 1,000 mls @ 999 mls/hr IV ONETIME ONE Stop: 03/12/17 19:12 Last Admin: 03/12/17 18:23 Dose: 999 mls/hr Lidocaine HCl (Xylocaine-Mpf 1%) Confirm Administered Dose 4 mls @ as directed .ROUTE .STK-MED ONE Stop: 03/12/17 18:38 Cefazolin Sodium/Dextrose 2 gm (/ Premix) 50 mls @ 100 mls/hr IV Q8H [facility] Last Admin: 03/12/17 23:16 Dose: Not Given Lactated Ringer's (Ringers, Lactated) Confirm Administered Dose 1,000 mls @ as directed .ROUTE .STK-MED ONE Stop: 03/12/17 19:33 Vancomycin HCl 1 gm/Vancomycin HCl 500 mg/ Sodium Chloride 500 mls @ 333 mls/ hr IV Q8H [facility] Last Admin: 03/12/17 23:16 Dose: Not Given Vancomycin HCl 1 gm/Vancomycin HCl 500 mg/ Sodium Chloride 500 mls @ 333 mls/ hr IV Q8H [facility] Last Admin: 03/13/17 04:35 Dose: 333 mls/hr Ketorolac Tromethamine (Toradol) 30 mg IVPUSH ONETIME ONE Stop: 03/12/17 17:42 Last Admin: 03/12/17 17:49 Dose: 30 mg Midazolam HCl (Versed 1 Mg/Ml) Confirm Administered Dose 2 mg .ROUTE .STK-MED ONE Stop: 03/12/17 18:38 Naloxone HCl (Narcan) 0.1 mg IVPUSH Q5M PRN PRN Reason: oversedation Stop: 03/13/17 19:15 Ondansetron HCl (Zofran) Confirm Administered Dose 4 mg .ROUTE .STK-MED ONE Stop: 03/12/17 18:37 Propofol (Diprivan 20 Ml) Confirm Administered Dose 200 mg .ROUTE .STK-MED ONE Stop: 03/12/17 18:37 Sodium Chloride (Saline Flush) 10 ml FLUSH ASDIRECTED PRN PRN Reason: Keep Vein Open Last Admin: 03/12/17 15:52 Dose: 10 ml Sodium Chloride (Saline Flush) 10 ml FLUSH ONETIME PRN PRN Reason: Keep Vein Open Last Admin: 03/12/17 15:53 Dose: 10 ml Trimethoprim/Sulfamethoxazole (Septra Ds) 2 tab PO ONETIME ONE Stop: 03/12/17 16:49 Last Admin: 03/12/17 17:51 Dose: Not Given Vancomycin HCl (Vancomycin) Confirm Administered Dose 1 gm .ROUTE .STK-MED ONE Stop: 03/12/17 19:04 Last Admin: 03/12/17 19:16 Dose: 1 gm - Exam Wound/Incisions: Other (Drainage noted on Webril. No drainage on NATALIE noted. ) General: Alert, Cooperative, No Acute Distress Extremities: Other (The pt was able to flex and extend all joints of left hand. Left ring finger erythematous, edematous, mildly tender. Erythema extending superiorly to forearm and medial upper arm noted yesterday has improved. NVS intact for LUE.) - Problem List Review Problem List Initiated/Reviewed/Updated: Yes - My Orders Last 24 Hours: Active Orders 24 hr Category Date Time Status VANCOMYCIN TROUGH [CHEM] Routine Lab 03/15/17 02:00 Ordered Vancomycin 1 gm Med 03/13/17 14:30 Active Vancomycin 500 mg Sodium Chloride 0.9% [Normal Saline] 500 ml IV Q12H Medication Orders Aspirin (Ecotrin) 325 mg PO DAILY [facility] Last Admin: 03/14/17 08:54 Dose: 325 mg Admin: 03/13/17 09:23 Dose: 325 mg Bisacodyl (Dulcolax) 5 mg PO DAILY PRN PRN Reason: Constipation Diphenhydramine HCl (Benadryl) 25 mg IVPUSH Q4H PRN PRN Reason: Itching Docusate Sodium (Colace) 100 mg PO BID PRN PRN Reason: Constipation Famotidine (Pepcid) 20 mg PO Q12H [facility] Last Admin: 03/14/17 06:40 Dose: 20 mg Admin: 03/13/17 18:55 Dose: 20 mg Admin: 03/13/17 06:34 Dose: 20 mg Admin: 03/12/17 22:43 Dose: 20 mg Cefazolin Sodium/Dextrose 2 gm (/ Premix) 50 mls @ 100 mls/hr IV Q8H [facility] Last Admin: 03/14/17 06:40 Dose: 100 mls/hr Infusion: 03/13/17 23:15 Dose: 100 mls/hr Admin: 03/13/17 22:45 Dose: 100 mls/hr Infusion: 03/13/17 14:18 Dose: 100 mls/hr Admin: 03/13/17 13:48 Dose: 100 mls/hr Infusion: 03/13/17 07:05 Dose: 100 mls/hr Admin: 03/13/17 06:35 Dose: 100 mls/hr Infusion: 03/12/17 23:03 Dose: 100 mls/hr Admin: 03/12/17 22:33 Dose: 100 mls/hr Vancomycin HCl 1 gm/Vancomycin HCl 500 mg/ Sodium Chloride 500 mls @ 333 mls/ hr IV Q12H [facility] Last Admin: 03/14/17 01:56 Dose: 333 mls/hr Infusion: 03/13/17 16:30 Dose: 333 mls/hr Admin: 03/13/17 14:59 Dose: 333 mls/hr Magnesium Hydroxide (Milk Of Magnesia) 30 ml PO BID PRN PRN Reason: Constipation Morphine Sulfate (Morphine) 2 mg IVPUSH Q2H PRN PRN Reason: Pain (moderate 4-6) Last Admin: 03/13/17 21:50 Dose: 2 mg Ondansetron HCl (Zofran) 4 mg IVPUSH Q6H PRN PRN Reason: Nausea/Vomiting Oxycodone/Acetaminophen (Percocet 325-5 Mg) 1 - 2 tab PO Q6H PRN PRN Reason: Pain Last Admin: 03/14/17 03:43 Dose: 2 tab Admin: 03/13/17 13:44 Dose: 2 tab Admin: 03/13/17 04:17 Dose: 2 tab Admin: 03/12/17 21:29 Dose: 2 tab Senna (Senna) 8.6 mg PO BID PRN PRN Reason: Constipation Sodium Chloride (Saline Flush) 10 ml FLUSH ASDIRECTED PRN PRN Reason: Keep Vein Open Vancomycin HCl (Pharmacy To Dose - Vancomycin) 1 dose .XX ASDIRECTED [facility] - Assessment Assessment (Free Text/Narrative):: POD#2 - I&D of abscesses at left hand - Plan Plan (Free Text/Narrative):: 1. Appears as gram pos cocci, staph aureus. Sensitivities likely available today. 2. Continue with current antibiotic regimen until sensitivities available. 3. Continue with frequent mobility, ASA. Elevate limb. 4. WBC decreased to 10.71. CRP 20.2 to 16.6 today. The pt's case was discussed with Dr. Ly.
[2017-03-14] MEDS: Saccharomyces Boulardii (Probiotic) 250 MG Cap PO SCH ×2 (13:43→22:09)
[2017-03-15] MEDS: Vancomycin 1500 MG in Sodium Chloride 0.9% 500 ML IV SCH ×6 (03:03→10:36)
[2017-03-15] MEDS: Acetaminophen/oxyCODONE 325-5 MG Tab PO PRN ×2 (03:28→10:36)
[2017-03-15] MEDS: Famotidine 20 MG Tab PO SCH (06:51)
[2017-03-15] MEDS: Aspirin 325 MG Tab.EC PO SCH (08:38)
[2017-03-15] MEDS: Saccharomyces Boulardii (Probiotic) 250 MG Cap PO SCH (08:38)
--- NOTE | 2017-03-15 10:53 | CR ---
Chest: Portable view of the chest was obtained. Comparison: No prior chest x-ray. Right-sided PICC line is seen. Tip lies near the junction of the axillary and subclavian vein. Heart size and mediastinum are normal. Lungs are clear. Bony structures are grossly intact. Impression: 1. Tip of PICC line near the axillary and subclavian vein junction. Diagnostic code #3
--- NOTE | 2017-03-15 11:35 | PCM.SN ---
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 Ly. Chart reviewed, allergies noted, risk/benefits discussed with patient, and consent signed. Aseptic technique noted with sterile gloves, gown, drape utilized. Patient positioned supine with all pressure points padded and comfort noted prior to procedure. 20 gauge angio placed to right antecubital vein, with chloroprep's times 3 used for skin prep. Area localized with 1% lidocaine for IV placement and introducer placement. Groshong NXT PICC 4 martiniquais single lumen advanced and secured to 41cm, and cut at 47cm. Inability to advance further noted with curling in axilla via portable chest xray. Good blood return noted and catheter flushed with 30ml's of normal saline. Stat Lock secure device utilized with mastisol, and chlorohexidine patch opsite. Patient tolerated procedure well. ER physician confirmed appropriateness of midline PICC for vancomycin therapy. REF: [id number] LOT: [id number] EXP: 2018-01-13
--- NOTE | 2017-03-15 16:18 | PCM.DCSUM1 ---
Discharge Summary - Hospital Course Brief History: Robert is a 51 yo male who underwent I&D of left hand abscess with Dr. Ly on 03-12-2017. The procedure was completed under general anesthesia. The pt tolerated the procedure well and was admitted to the Medical -Surgical Unit for IV antibiotic therapy and continued monitoring. The pt was placed on Ancef and vancomycin. Ancef was discontinued when culture and sensitivity results were made available. Culture results revealed MRSA which was sensitive to vancomycin. The pt had a PICC line placed on 03-15-2017. On POD#1, 325mg ASA BID was initiated for VTE prophylaxis. SCDs and TEDs were also ordered. On POD#3, the pt was deemed appropriate to discharge to the [facility] in [place], [place] where he will reside while receiving IV vancomycin infusions TID. - Discharge Data Discharge Date: 03/15/17 Discharge Disposition: Home, Self-Care 01 Condition: Good - Patient Summary/Data Consults: Consultations 03/14/17 16:43 Consult to Case Management [CONS] Routine - Patient Instructions Diet: Usual Diet as Tolerated Activity: Apply Ice, As Tolerated, Elevate Extremity, Full Weight Bearing Activity, Other: No forceful use of the left hand. Driving: Do Not Drive Driving, Other: Do not drive while using pain medication. Showering/Bathing: May Shower Showering/Bathing, Other: Keep the area covered with showering. Wound/Incision Care: Keep Operative Site/Wound Site Clean and Dry, Do NOT Change Dressing Notify Provider of: Fever, Increased Pain, Swelling and Redness, Drainage, Nausea and/or Vomiting Other/Special Instructions: Please elevate the limb to decrease swelling. Please keep the dressings and bandages in place until follow-up. Please have the IV antibiotic therapy completed as directed. Please do not use the limb for forceful activity. Please contact the Clinic with questions or concerns - [phone]. - Discharge Plan Prescriptions/Med Rec: Acetaminophen/oxyCODONE [Percocet 325-5 MG] 1 - 2 tab PO Q6H PRN #30 tablet PRN Reason: Pain Aspirin [Ecotrin] 325 mg PO DAILY #40 tab.ec Home Medications: Home Meds Acetaminophen/oxyCODONE [Percocet 325-5 MG] 1 - 2 tab PO Q6H PRN #30 tablet [Rx] Aspirin [Ecotrin] 325 mg PO DAILY #40 tab.ec 03/15/17 [Rx] Bisacodyl [Dulcolax] 5 mg PO DAILY PRN tablet 03/15/17 [Rx] Docusate Sodium [Colace] 100 mg PO BID PRN cap 03/15/17 [Rx] Famotidine [Pepcid] 20 mg PO Q12H tablet 03/15/17 [Rx] Magnesium Hydroxide [Milk of Magnesia] 30 ml PO BID PRN cup 03/15/17 [Rx] Sennosides [Senna] 8.6 mg PO BID PRN tablet 03/15/17 [Rx] Vancomycin 1 gm IV Q8H sdv 03/15/17 [Rx] Vancomycin 500 mg IV Q8H sdv 03/15/17 [Rx] Vancomycin Pharmacy to Dose [Pharmacy to Dose - Vancomycin] 1 dose .XX ASDIRECTED each 03/15/17 [Rx] Patient Handouts: Abscess, Cellulitis, Adult, [id number] Forms: ED Department Discharge, ED Return to Work/School Form Referrals: Melchor Ly MD [Physician] - 03/20/17 8:00 am (Please follow-up with Dr. Ly on March 20 at 0800am. ) - Patient Data Vitals - Most Recent: Last Vital Signs Temp 97.9 F 03/15/17 08:24 Pulse 83 03/15/17 08:24 Resp 18 03/15/17 08:24 BP 147/83 H 03/15/17 08:24 Pulse Ox 93 L 03/15/17 08:24 Weight - Most Recent: 251 lb 14.4 oz I&O - Last 24 hours: Intake & Output 03/15/17 03/15/17 03/15/17 06:59 14:59 22:59 Intake Total 1000 180 Output Total 3 Balance 997 180 Lab Results - Last 24 hrs: Laboratory Results - last 24 hr 03/15/17 Range/Units 02:00 Vancomycin Trough 6.7 L (10.0-20.0) Med Orders - Current: Current Medications Aspirin (Ecotrin) 325 mg PO DAILY EVIE Last Admin: 03/15/17 08:38 Dose: 325 mg Bisacodyl (Dulcolax) 5 mg PO DAILY PRN PRN Reason: Constipation Diphenhydramine HCl (Benadryl) 25 mg IVPUSH Q4H PRN PRN Reason: Itching Docusate Sodium (Colace) 100 mg PO BID PRN PRN Reason: Constipation Famotidine (Pepcid) 20 mg PO Q12H [facility] Last Admin: 03/15/17 06:51 Dose: 20 mg Vancomycin HCl 1 gm/Vancomycin HCl 500 mg/ Sodium Chloride 500 mls @ 333 mls/ hr IV Q8H [facility] Last Admin: 03/15/17 10:36 Dose: 333 mls/hr Magnesium Hydroxide (Milk Of Magnesia) 30 ml PO BID PRN PRN Reason: Constipation Morphine Sulfate (Morphine) 2 mg IVPUSH Q2H PRN PRN Reason: Pain (moderate 4-6) Last Admin: 03/13/17 21:50 Dose: 2 mg Ondansetron HCl (Zofran) 4 mg IVPUSH Q6H PRN PRN Reason: Nausea/Vomiting Oxycodone/Acetaminophen (Percocet 325-5 Mg) 1 - 2 tab PO Q6H PRN PRN Reason: Pain Last Admin: 03/15/17 10:36 Dose: 2 tab Saccharomyces Boulardii (Florastor) 250 mg PO BID [facility] Last Admin: 03/15/17 08:38 Dose: 250 mg Senna (Senna) 8.6 mg PO BID PRN PRN Reason: Constipation Sodium Chloride (Saline Flush) 10 ml FLUSH ASDIRECTED PRN PRN Reason: Keep Vein Open Vancomycin HCl (Pharmacy To Dose - Vancomycin) 1 dose .XX ASDIRECTED [facility] Discontinued Medications Bupivacaine HCl (Marcaine 0.25%) Confirm Administered Dose 30 ml .ROUTE .STK- MED ONE Stop: 03/12/17 18:08 Fentanyl (Sublimaze) Confirm Administered Dose 250 mcg .ROUTE .STK-MED ONE Stop: 03/12/17 18:38 Gadobenate Dimeglumine (Multihance) 20 ml IVPUSH ONETIME ONE Stop: 03/12/17 14:53 Last Admin: 03/12/17 15:51 Dose: 20 ml Clindamycin Phosphate 900 mg/ (Sodium Chloride) 106 mls @ 100 mls/hr IV ONETIME ONE Stop: 03/12/17 13:36 Last Admin: 03/12/17 12:52 Dose: 100 mls/hr Vancomycin HCl 1 gm/ Sodium (Chloride) 250 mls @ 250 mls/hr IV ONETIME ONE Stop: 03/12/17 18:40 Last Admin: 03/12/17 17:51 Dose: Not Given Sodium Chloride (Normal Saline) 1,000 mls @ 999 mls/hr IV ONETIME ONE Stop: 03/12/17 19:12 Last Admin: 03/12/17 18:23 Dose: 999 mls/hr Lidocaine HCl (Xylocaine-Mpf 1%) Confirm Administered Dose 4 mls @ as directed .ROUTE .STK-MED ONE Stop: 03/12/17 18:38 Cefazolin Sodium/Dextrose 2 gm (/ Premix) 50 mls @ 100 mls/hr IV Q8H [facility] Last Admin: 03/12/17 23:16 Dose: Not Given Lactated Ringer's (Ringers, Lactated) Confirm Administered Dose 1,000 mls @ as directed .ROUTE .STK-MED ONE Stop: 03/12/17 19:33 Vancomycin HCl 1 gm/Vancomycin HCl 500 mg/ Sodium Chloride 500 mls @ 333 mls/ hr IV Q8H [facility] Last Admin: 03/12/17 23:16 Dose: Not Given Cefazolin Sodium/Dextrose 2 gm (/ Premix) 50 mls @ 100 mls/hr IV Q8H [facility] Last Admin: 03/14/17 13:43 Dose: 100 mls/hr Vancomycin HCl 1 gm/Vancomycin HCl 500 mg/ Sodium Chloride 500 mls @ 333 mls/ hr IV Q8H [facility] Last Admin: 03/13/17 04:35 Dose: 333 mls/hr Vancomycin HCl 1 gm/Vancomycin HCl 500 mg/ Sodium Chloride 500 mls @ 333 mls/ hr IV Q12H [facility] Last Admin: 03/14/17 14:44 Dose: 333 mls/hr Ketorolac Tromethamine (Toradol) 30 mg IVPUSH ONETIME ONE Stop: 03/12/17 17:42 Last Admin: 03/12/17 17:49 Dose: 30 mg Midazolam HCl (Versed 1 Mg/Ml) Confirm Administered Dose 2 mg .ROUTE .STK-MED ONE Stop: 03/12/17 18:38 Naloxone HCl (Narcan) 0.1 mg IVPUSH Q5M PRN PRN Reason: oversedation Stop: 03/13/17 19:15 Ondansetron HCl (Zofran) Confirm Administered Dose 4 mg .ROUTE .STK-MED ONE Stop: 03/12/17 18:37 Propofol (Diprivan 20 Ml) Confirm Administered Dose 200 mg .ROUTE .STK-MED ONE Stop: 03/12/17 18:37 Sodium Chloride (Saline Flush) 10 ml FLUSH ASDIRECTED PRN PRN Reason: Keep Vein Open Last Admin: 03/12/17 15:52 Dose: 10 ml Sodium Chloride (Saline Flush) 10 ml FLUSH ONETIME PRN PRN Reason: Keep Vein Open Last Admin: 03/12/17 15:53 Dose: 10 ml Trimethoprim/Sulfamethoxazole (Septra Ds) 2 tab PO ONETIME ONE Stop: 03/12/17 16:49 Last Admin: 03/12/17 17:51 Dose: Not Given Vancomycin HCl (Vancomycin) Confirm Administered Dose 1 gm .ROUTE .STK-MED ONE Stop: 03/12/17 19:04 Last Admin: 03/12/17 19:16 Dose: 1 gm *Q Meaningful Use (DIS) - VTE *Q VTE Criteria *Q: - Stroke *Q Stroke Criteria *Q: - AMI *Q AMI Criteria *Q:
--- NOTE | 2017-03-20 14:32 | PCM.OPNOTE ---
- General Post-Op/Procedure Note Date of Surgery/Procedure: 04/11/17 Operative Procedure(s): irrigation and debridement of left hand abscess Pre Op Diagnosis: left hand dorsal abscess Post-Op Diagnosis: Same Anesthesia Technique: General LMA Primary Surgeon: Melchor Ly Anesthesia Provider: Lisa SEPULVEDA in mLs: 25 Complications: None Condition: Good
--- NOTE | 2017-03-20 14:43 | PCM.CONS ---
H&P History of Present Illness - General Date of Service: 03/12/17 Source of Information: Patient, Provider - History of Present Illness Initial Comments - Free Text/Narative: This is a 51 year old male who presents to Ed today due to increased pain and swelling to the left hand. Patient states he popped a "blister" near the dorsum of the left ring finger. He subsequently over the last week has had increasing pain and swelling to the left hand. He states it has begun to drain as well. He states he had a previous infection like this in his knee before that required surgery. Patient does state he has been having fever and chills recently today. Denies any IV drug use or other injury. Patient underwent a MRI of the hand in the ED where he was found to have an abscess over the dorsum of the hand. Left Hand Pain Score (Numeric/FACES): 1 - Related Data Allergies/Adverse Reactions: Allergies Allergy/AdvReac Type Severity Reaction Status Date / Time Dairy Products Allergy Itching Verified 03/12/17 11:46 Home Medications: Home Meds Acetaminophen/oxyCODONE [Percocet 325-5 MG] 1 - 2 tab PO Q6H PRN #30 tablet [Rx] Aspirin [Ecotrin] 325 mg PO DAILY #40 tab.ec 03/15/17 [Rx] Bisacodyl [Dulcolax] 5 mg PO DAILY PRN tablet 03/15/17 [Rx] Docusate Sodium [Colace] 100 mg PO BID PRN cap 03/15/17 [Rx] Famotidine [Pepcid] 20 mg PO Q12H tablet 03/15/17 [Rx] Magnesium Hydroxide [Milk of Magnesia] 30 ml PO BID PRN cup 03/15/17 [Rx] Sennosides [Senna] 8.6 mg PO BID PRN tablet 03/15/17 [Rx] Vancomycin 1 gm IV Q8H sdv 03/15/17 [Rx] Vancomycin 500 mg IV Q8H sdv 03/15/17 [Rx] Vancomycin Pharmacy to Dose [Pharmacy to Dose - Vancomycin] 1 dose .XX ASDIRECTED each 03/15/17 [Rx] Past Medical History Gastrointestinal History: Reports: Other (See Below) Other Gastrointestinal History: ulcerative colitis Dermatologic History: Reports: Other (See Below) Other Dermatologic History: staph infections Social & Family History - Tobacco Use Smoking Status *Q: Never Smoker Used Tobacco, but Quit: No Second Hand Smoke Exposure: No - Alcohol Use Days Per Week of Alcohol Use: 0 Number of Drinks Per Day: 0 Total Drinks Per Week: 0 - Recreational Drug Use Recreational Drug Use: No H&P Review of Systems - Review of Systems: Review Of Systems: ROS reveals no pertinent complaints other than HPI. Exam - Exam Exam: See Below - Vital Signs Vital Signs: Last Vital Signs Temp 36.6 C 03/15/17 08:24 Pulse 83 03/15/17 08:24 Resp 18 03/15/17 08:24 BP 147/83 H 03/15/17 08:24 Pulse Ox 93 L 03/15/17 08:24 Weight: 114.26 kg - Exam Physical Exam Comments:: LUE: patient has streaking up his forearm to the left elbow region, he is able to move his wrist without pain but it is diffusely swollen over the dorsum of his hand with a minor amount of purulent drainage at the base of fourth finger, no tenderness of the flexor tendons, able to flex and extend all fingers with pain over the dorsum of the hand, neurovascularly intact to the radial, median and ulnar nerves with a 2+ distal radial pulse - Patient Data Result Diagrams: 03/14/17 06:06 03/12/17 12:44 Consult PN Assessment/Plan Procedures: Procedures THER/PROPH/DIAG IV INF ADDON (03/15/17) THER/PROPH/DIAG IV INF INIT (03/15/17) Problem List Initiated/Reviewed/Updated: Yes Plan: A: left hand abscess P: At this time secondary to the abscess and look of the hand I believe an emergent irrigation and debridement is required. The risks, benefits, complications, and alternatives were discussed with the patient and we will proceed with the above plan. Patient will require IV antibiotics for a time and will be admitted after surgery. He is aware of this. All of his questions were sought and answered at todays visit. We will proceed to the OR and take cultures for sensitivity.
--- NOTE | 2017-03-21 15:42 | OR ---
DATE OF OPERATION: 03/12/2017 SURGEON: Melchor Ly MD OPERATION PERFORMED: Irrigation and debridement, left hand abscess. PREOPERATIVE DIAGNOSIS: Left hand dorsal abscess. POSTOPERATIVE DIAGNOSIS: Left hand dorsal abscess. ANESTHESIA: General LMA. ANESTHESIA PROVIDER: Lisa Zhao CRNA. ESTIMATED BLOOD LOSS: 25 mL. COMPLICATIONS: None. CONDITION: Stable. DESCRIPTION OF PROCEDURE: The patient was identified in the preoperative holding area. Proper site was marked and identified by the surgeon. The patient was taken back to the operating theater, where after adequate anesthesia, the patient's left upper extremity was sterilely prepped and draped in the usual sterile fashion. OR time-out was performed. At this time, left upper extremity had 2 small dorsal incisions made on both the radial and ulnar aspect of the previous abscess per the MRI, just at the base of the fourth digit on the dorsal side. At this time, the 2 tunnels were then connected and there was noted to be a copious amount of purulent material that was extricated. At this time, there was noted to be nonviable skin and tissue less than 5 sq cm. It was debrided out of the hand. At this time, there was noted to be good granulation type tissue over the top still, so there was no need for skin graft. At this time, 3 L normal saline was irrigated through this abscess region and making sure to undermine all tissue to get all of the loculations noted on the MRI for the abscess. At this time, once 3 L was irrigated through, all dirty instruments were taken off the table. It was redraped along with new gloves. Before the irrigation and debridement, we did take cultures both aerobic and anaerobic, cultures sent to the lab. At this time, it was decided that the small stab incisions were allowed to remain open to drain, and the patient was placed in a sterile soft dressing. The patient tolerated the procedure well and will be admitted to the floor for the start of IV antibiotics until sensitivities are back. JANNETTE /[id number]
== END 2017-03-15 14:20 | disposition home or self-care (01) | DRG 603 ==
LOC: JD.ED 11:30 → JD.SDS 18:00 → JD.MS 19:11 → OBSVTOIN 03-14 13:09
PROVIDERS: ADMIT Orthopaedic Surgery; ATTEND Orthopaedic Surgery
PROC: 0H9GXZX Drainage of Left Hand Skin, External Approach, Diagnostic (ICD-10-PCS; principal; 2017-03-12)
PROC: 0HBGXZZ Excision of Left Hand Skin, External Approach (ICD-10-PCS; 2017-03-12)
PROC: 05H533Z Insertion of Infusion Device into Right Subclavian Vein, Percutaneous Approach (ICD-10-PCS; 2017-03-15)
DX: L03.114 Cellulitis of left upper limb (principal); B95.62 Methicillin resistant Staphylococcus aureus infection as the cause of diseases classified elsewhere; R50.9 Fever, unspecified; Z91.011 Allergy to milk products; Z79.82 Long term (current) use of aspirin; Z79.899 Other long term (current) drug therapy
CPT/HCPCS: 00400; 36415; 36569; 73120-26-LT; 73120-LT; 73220-26-LT; 73220-LT; 80053; 80202; 85025; 86140; 87075; 87077; 87186; 87205; 96365; 96366; 96375; 99285; 99285-25; A9270-GY; A9577; C1751; G0378; J0690; J1885; J2250; J2270; J2405; J2704; J3010; J3370; J3490; J7030; J7040; J7050; J7120